=== PATIENT | male | born 1935 | race Caucasian/White ===

== ENCOUNTER 2016-07-13 06:41 | Inpatient (IN) | payer OTHER ==
[2016-06-18 14:01] VITALS: BMI 26.0
--- NOTE | 2016-06-18 14:38 | PAT Medication Instructions ---
Service Date Jun 18, 2016. Current Home Medication List Amlodipine (Norvasc), 10 MG PO QPM Aspirin (Aspirin Ec), 81 MG PO QPM Lisinopril/Hctz (Zestoretic 20MG/25MG), 1 TAB PO QAM Simvastatin (Zocor), 20 MG PO QPM Medication Instructions For Your Scheduled Surgery - Hold the following medications the morning of surgery: Lisinopril/Hctz (Zestoretic 20MG/25MG), 1 TAB PO QAM - Take the following medications as scheduled the night before surgery: Simvastatin (Zocor), 20 MG PO QPM Amlodipine (Norvasc), 10 MG PO QPM Aspirin (Aspirin Ec), 81 MG PO QPM If you have any questions please call us at [phone] or [phone] ( [facility]) or [phone]
--- NOTE | 2016-06-18 15:10 | DIAGNOSTIC IMAGING REPORT ---
CHEST 2 VIEWS ROUTINE CLINICAL HISTORY: Preoperative evaluation. COMPARISON STUDY: No previous studies for comparison. FINDINGS: Lung volumes are at the upper limits of normal. No consolidation is identified. There is no pneumothorax or pleural effusion. Cardiac size is normal. Mediastinal contours are normal. There is no evidence of pulmonary edema. IMPRESSION: No acute cardiopulmonary findings. Electronically signed by: Malick Baires M.D. 06/18/2016 3:08 PM Dictated Date/Time: 06/18/2016 3:08 PM
[2016-06-18 16:11] LABS: BASO % 0.4 %; BASO ABS # 0.03 K/uL (0-0.2); COMPLETE YES; EOS % 1.5 %; HEMATOCRIT 45.1 % (42-52); IG% 0.1 %; LYMPH % 20.7 %; LYMPH ABS # 1.65 K/uL (1.2-3.4); MEAN CELL VOLUME 87.9 fL (80-100); MEAN CORPUSCULAR HEMOGLOBIN 32.6 pg (25-34); MEAN PLATELET VOLUME 9.4 fL (7.4-10.4); MONO % 6.9 %; NEUT % 70.4 %; PLATELET COUNT 224 K/uL (130-400); RED BLOOD COUNT 5.13 M/uL (4.7-6.1); WHITE BLOOD COUNT 7.99 K/uL (4.8-10.8)
[2016-06-18 16:17] LABS: URINE APPEARANCE CLEAR (CLEAR); URINE BILIRUBIN NEG (NEG); URINE COLOR YELLOW; URINE NITRITE NEG (NEG); URINE SPECIFIC GRAVITY 1.022 (1.000-1.030); UROBILINOGEN NEG (NEG); ZZUR CULT IF INDIC CLEAN CATCH NO
[2016-06-18 16:20] LABS: MANUAL MICROSCOPIC REQUIRED? NO; REVIEW REQ? NO
[2016-06-18 16:23] LABS: PARTIAL THROMBOPLASTIN RATIO 1.1; PROTHROMBIN TIME (PATIENT) 10.7 SECONDS (9.0-12.0)
[2016-06-18 16:46] LABS: BUN/CREATININE RATIO 26.5 (10-20); CALCIUM 9.1 mg/dl (8.5-10.1); CREATININE 1.1 mg/dl (0.60-1.40); POTASSIUM 3.2 mmol/L (3.5-5.1)
--- NOTE | 2016-07-10 09:48 | HISTORY & PHYSICAL EXAMINATION ---
DATE OF ADMISSION: 07/13/2016 CHIEF COMPLAINT: Right hip pain. HISTORY OF PRESENT ILLNESS: Mr. Deluna is a 80-year-old male with a multiple year history of right hip pain. The patient rates his pain an 8/10. He has pain with his daily activities. He has limited standing and walking tolerance. Pain is worse with weightbearing. The patient has been taking Advil and injections without relief. He has failed conservative treatment and is scheduled for right hip replacement. PAST MEDICAL HISTORY: Hypertension, hypercholesterolemia, BPH. He denies heart disease, diabetes or DVT. PAST SURGICAL HISTORY: Left knee arthroscopy. SOCIAL HISTORY: The patient denies alcohol or tobacco use. He lives in a single story home. He is and retired. FAMILY HISTORY: Negative for DVT. MEDICATIONS: Lisinopril/HCTZ 20/25 mg, amlodipine 10 mg, aspirin 81 mg, simvastatin 20 mg. ALLERGIES: None. REVIEW OF SYSTEMS: See HPI. Ten other systems reviewed, all negative. PHYSICAL EXAMINATION: VITAL SIGNS: Height 5 foot 9, weight 184 pounds, BMI 27. GENERAL: This is a well-developed, well-nourished male who is alert and oriented x3. Mood and affect are appropriate. HEAD, EYES, EARS, NOSE, AND THROAT: Normocephalic, atraumatic. Mucous membranes are moist and intact. NECK: Supple without lymphadenopathy. HEART: Regular rate and rhythm without murmurs, rubs or gallops. LUNGS: Clear to auscultation without wheezes or rhonchi. ABDOMEN: Soft and nontender. Bowel sounds are equal and active. EXTREMITIES: No ecchymosis, redness or warmth. Log roll of the hip reproduces pain in the groin. He is neurovascularly intact with +5/5 strength. He walks with an antalgic gait. X-RAY EXAMINATION: AP and lateral views show joint space narrowing and osteophyte formation. He also has cystic formation in the femoral head. IMPRESSION: Degenerative joint disease, right hip. PLAN: The patient will be admitted for a right total hip arthroplasty. We will plan on aspirin for DVT prophylaxis. The patient's PCP is Dr. Linn in [place], [place]. He is having [facility] for home physical therapy.
[~2016-07-13] VITALS: Ht 177.8 cm; Wt 83.0 kg
[2016-07-13] VITALS (7 sets, daily range): BP systolic 102–175; BP diastolic 61–97; PULSE 57–80; TEMP 36.3–37; O2SAT 93–99; Ht 177.8 cm; Wt 83.0 kg
[~2016-07-13 06:41] MED LIST: ACETAMINOPHEN 500 MG TAB PO SCH; AMLO-114 PO; ASPI81TA28 PO; CEFAZOLIN 2000 MG/60 ML D5W 60 ML IV SCH; CeleBREX 200 MG CAP PO SCH; DEXAMETHASONE 4 MG TAB PO SCH; FAMOTIDINE 20 MG TAB PO SCH; GABAPENTIN 300 MG CAP PO SCH; LACTATED RINGER'S 1000ML 1,000 ML IV SCH; LACTATED RINGER'S 1000ML 500 ML IV ONE; LACTATED RINGER'S 1000ML IV SCH; LISI-788 PO; METOCLOPRAMIDE HCL 10 MG TAB PO SCH; OXYCODONE HCL 10 MG TABCR (OXYCONTIN) PO SCH; POLYMYXIN B SULFATE 100,000 UNITS in NSS 100ML IR SCH; ROPIVACAINE 5MG/ML 30 ML 150 MG, BUPIVACAINE/EPINEPHR 0.5% MPF 30 ML, KETOROLAC TROMETH... INFIL SCH; SIMV20TA2 PO; VANCOMYCIN INJ 400 MG in NSS 100ML IR SCH
[2016-07-13] MEDS ORDERED: BUPIVACAINE 0.5 % 5 MG/1 ML PF 10ML VIAL ONE (07:01)
[2016-07-13] MEDS ORDERED: POTA10CA28 PO (07:28)
[2016-07-13] MEDS ORDERED: NAPR1TAB9 PO (07:29)
[2016-07-13 07:57] LABS: BUN/CREATININE RATIO 25.3 (10-20); CALCIUM 9.6 mg/dl (8.5-10.1); CREATININE 1.2 mg/dl (0.60-1.40); POTASSIUM 3.3 mmol/L (3.5-5.1)
--- NOTE | 2016-07-13 08:27 | History & Physical Bridge Note ---
H&P Re-Evaluation Bridge Note: I have examined the patient, reviewed the History & Physical and in the interval since the performance of the History & Physical I have noted the following changes of clinical significance: No changes noted
[2016-07-13] MEDS ORDERED: LABETALOL HCL IV 5 MG/ML 20ML IV PRN (08:30)
[2016-07-13] MEDS ORDERED: EpHEDrine SULFATE INJ 50 MG/ML AMP IV PRN (08:30)
[2016-07-13] MEDS ORDERED: NALOXONE HCL 0.4 MG/1 ML VIAL/CARP IV PRN (08:30)
[2016-07-13] MEDS ORDERED: FLUMAZENIL 0.1 MG/1 ML 10 ML VIAL IV PRN (08:30)
[2016-07-13] MEDS ORDERED: PHENYLEPHRINE 100MCG/ML 5ML SYR IV PRN (08:30)
[2016-07-13] MEDS ORDERED: FENTANYL CITRATE INJ 50 MCG/1 ML 2 ML VIAL IV PRN (08:30)
[2016-07-13] MEDS ORDERED: ONDANSETRON INJ 2 MG/ML 2 ML VIAL IV PRN ×2 (08:30→11:15)
[2016-07-13] MEDS ORDERED: ATROPINE SULFATE 0.1 MG/ML 5ML SYR IV PRN (08:30)
[2016-07-13] MEDS ORDERED: MEPERIDINE HCL 25 MG/ML CARP IV PRN (08:30)
[2016-07-13] MEDS ORDERED: HYDROmorphone INJ 2 MG/ML SYR/VIAL IV PRN (08:30)
[2016-07-13] MEDS ORDERED: MIDAZOLAM HCL 1 MG/ML 2ML VIAL ONE ×2 (08:37)
[2016-07-13] MEDS ORDERED: POVIDONE-IODINE OP SOLN 30 ML BTL ONE (08:56)
[2016-07-13] MEDS ORDERED: ORTHO JOINT ANESTHETIC ONE (08:56)
[2016-07-13] MEDS ORDERED: BACITRACIN 50000 UNIT VIAL ONE (08:56)
[2016-07-13] MEDS: TRANEXAMIC ACID INJ 1,000 MG in SODIUM CHLORIDE 0.9% 100ML 100 ML IV SCH ×2 (09:07→13:15)
[2016-07-13] MEDS ORDERED: LIDOCAINE HCL 2% 2 ML VIAL (20MG/ML) ONE (10:09)
[2016-07-13] MEDS ORDERED: PROPOFOL IV EMULSION 10 MG/ML 20 ML VIAL IV ONE ×2 (10:09)
--- NOTE | 2016-07-13 11:02 | [facility] Post Operative Brief Note ---
Immediate Operative Summary Operative Date Jul 13, 2016. Pre-Operative Diagnosis Degenerative joint disease, right hip Post-Operative Diagnosis Degenerative joint disease, right hip Procedure(s) Performed Right total hip arthroplasty, direct anterior approach Surgeon Dr. Agustín Obrien Color Matcher Surgeon(s) Rochelle Avery PA-C Estimated Blood Loss 50 Findings djd Specimens A: right femoral head Complication(s) None Disposition Recovery Room / PACU
[2016-07-13] MEDS ORDERED: ZOLPIDEM TARTRATE 5 MG TAB PO PRN (11:15)
[2016-07-13] MEDS ORDERED: OXYCODONE HCL IR 5 MG TAB (IMMEDIATE RELEASE) PO PRN (11:15)
[2016-07-13] MEDS ORDERED: BISACODYL 10 MG SUPP PR PRN (11:15)
[2016-07-13] MEDS ORDERED: TRAMADOL HCL 50 MG TAB PO PRN (11:15)
[2016-07-13] MEDS ORDERED: MoRPHine SULFATE 2 MG/ML CARP IV PRN (11:15)
[2016-07-13] MEDS ORDERED: METOCLOPRAMIDE HCL INJ 5 MG/ML 2 ML VIAL IV PRN (11:15)
[2016-07-13] MEDS ORDERED: ALUMINUM/MAGNESIUM/SIMETH (MAALOX MAX) 30 ML UDC PO PRN (11:15)
[2016-07-13] MEDS ORDERED: SOD PHOSPHATE/SOD BIPHOSPHATE ENEMA 132 ML BTL PR PRN (11:15)
[2016-07-13] MEDS ORDERED: MAGNESIUM HYDROXIDE SUSP 30 ML UDC PO PRN (11:15)
[2016-07-13] MEDS ORDERED: DiphenhydrAMINE HCL 50 MG/ML VIAL IV PRN (11:15)
--- NOTE | 2016-07-13 11:41 | DIAGNOSTIC IMAGING REPORT ---
RIGHT PELVIS/UNILATERAL HIP 1 VIEW CLINICAL HISTORY: Postop study. Degenerative arthritis COMPARISON STUDY: No previous studies for comparison. FINDINGS: There are postsurgical changes of a total right hip arthroplasty. The acetabular and femoral components appear well seated. There is no dislocation. There are no acute fractures. There is air within the soft tissues consistent with recent surgery. There is an overlying surgical drain. IMPRESSION: Postsurgical changes of a total right hip arthroplasty Electronically signed by: Alex Colbert M.D. 07/13/2016 11:40 AM Dictated Date/Time: 07/13/2016 11:39 AM
--- NOTE | 2016-07-13 12:05 | DIAGNOSTIC IMAGING REPORT ---
INTRAOPERATIVE RIGHT HIP 2 VIEWS CLINICAL HISTORY: Right total hip arthroplasty COMPARISON STUDY: No previous studies for comparison. FINDINGS: 10 seconds of fluoroscopic time was utilized. 2 intraoperative fluoroscopic spot images demonstrate a total right hip arthroplasty. There is no dislocation. No fractures are visualized. IMPRESSION: Intraoperative radiographs demonstrating a total right hip arthroplasty Electronically signed by: Alex Colbert M.D. 07/13/2016 12:04 PM Dictated Date/Time: 07/13/2016 12:03 PM
--- NOTE | 2016-07-13 12:17 | Anesthesiology Progress Note ---
Anesthesia Post Op Note Date & Time Jul 13, 2016 at 12:17 Vital Signs Pain Intensity: 0 Vital Signs Past 12 Hours Date Time Temp Pulse Resp B/P Pulse Ox O2 Delivery O2 Flow Rate FiO2 07/13/16 12:10 36.0 57 14 104/51 98 Nasal Cannula 2 07/13/16 12:00 59 12 104/54 97 Nasal Cannula 2 07/13/16 11:50 59 14 95/59 98 Nasal Cannula 2 07/13/16 11:40 59 11 96/67 99 Mask 10 07/13/16 11:30 65 15 112/53 100 Mask 10 07/13/16 11:23 36.1 65 14 104/51 98 Mask 10 07/13/16 07:20 36.7 80 20 175/97 93 Room Air Notes Mental Status: alert / awake / arousable, participated in evaluation Pt Amnestic to Procedure: Yes Nausea / Vomiting: adequately controlled Pain: adequately controlled Airway Patency, RR, SpO2: stable & adequate BP & HR: stable & adequate Hydration State: stable & adequate Anesthetic Complications: no major complications apparent
[2016-07-13] MEDS: D5W AND 1/2NSS + 20MEQ KCL 1,000 ML IV SCH ×2 (13:14→22:45)
[2016-07-13] MEDS: KETOROLAC TROMETHAMINE 15 MG/ML VIAL IV. SCH ×2 (14:15→20:05)
[2016-07-13] MEDS: ACETAMINOPHEN 500 MG TAB PO SCH (16:06)
[2016-07-13] MEDS: CEFAZOLIN IV 2,000 MG in DEXTROSE 5% 50ML 50 ML IV SCH (16:06)
--- NOTE | 2016-07-13 17:08 | OPERATIVE REPORT ---
DATE OF OPERATION: 07/13/2016 PREOPERATIVE DIAGNOSIS: Degenerative arthritis, right hip. POSTOPERATIVE DIAGNOSIS: Same. PROCEDURE: Right total hip replacement. SURGEON: Agustín Obrien MD RAISE MINER: SONI Putnam ANESTHESIA: Spinal. BLOOD LOSS: 50 mL. REPLACEMENT FLUIDS: 1500 mL crystalloid. DRAINS: Hemovac x2. CULTURES: None. COMPLICATIONS: None. COMPONENTS USED: [employer] hip system: Acetabulum size 56, femur size 7 high offset, and femoral head +4, 36 mm. NOTE: SONI Putnam was present and assisted throughout due to the complicated nature of this case. She helped with preparation and set up, first assisted throughout and personally closed the fascial, subcutaneous and skin layers and applied the postoperative dressing. DESCRIPTION OF PROCEDURE: Following satisfactory spinal, the patient was placed supine on the operating room table. The left leg was placed in the well leg hawkins and the right leg in the traction device. The right leg was prepared with ChloraPrep and draped sterilely. Following a surgical time-out, an anterior approach was performed in the interval between the sartorius and tensor muscles. The circumflex femoral vessels were identified and ligated. An anterior capsulotomy was performed exposing an arthritic femoral neck and head. The femoral neck and head were trimmed and removed. The acetabular retractors were placed. Acetabular reaming and preparation was completed and under fluoroscopic guidance, a 56 shell was placed and secured with a dome screw. The local anesthetic was placed and the polyethylene liner was placed after irrigation. The femur was placed into position of external rotation, extension and adduction. The femoral canal was prepared up to the size 7, high offset neck with a +4 head using fluoroscopy showed good fit and fill of the proximal canal and confucianist of leg lengths using anatomic landmarks. The hip was dislocated. The trial component was removed. The final implant was placed and after irrigation, the hip was reduced with fluoroscopy confirming the position. The Betadine soak was performed for 5 minutes and then irrigated. The capsule was closed with #1 Vicryl interrupted. Local anesthetic and irrigation were placed. The drain was then placed. The fascia was closed with a running suture of #1 Vicryl, the subcutaneous tissues with 2-0 Vicryl and the skin was closed with a running subcuticular stitch of 3-0 V-Loc. Dermabond and a dry dressing were applied. The patient was returned to his bed in stable condition. I attest to the content of the Intraoperative Record and any orders documented therein. Any exceptio ns are noted below.
[2016-07-13] MEDS ORDERED: TRANEXAMIC ACID INJ 1,000 MG in SODIUM CHLORIDE 0.9% 100ML 100 ML IV ONE (17:30)
[2016-07-13] MEDS ORDERED: SENNA 8.6 MG TAB PO SCH (21:00)
[2016-07-13] MEDS ORDERED: SIMVASTATIN 20 MG TAB PO SCH (21:00)
[2016-07-13] MEDS ORDERED: AMLODIPINE BESYLATE 5 MG TAB PO SCH (21:00)
[2016-07-13] MEDS: ASPIRIN 81 MG ECTAB PO SCH (21:01)
[2016-07-14] MEDS: CEFAZOLIN IV 2,000 MG in DEXTROSE 5% 50ML 50 ML IV SCH (00:33)
[2016-07-14] MEDS: ACETAMINOPHEN 500 MG TAB PO SCH ×2 (00:33→07:36)
[2016-07-14] MEDS: KETOROLAC TROMETHAMINE 15 MG/ML VIAL IV. SCH ×2 (01:56→07:35)
[2016-07-14 04:06] VITALS: BP 167/75; PULSE 84; TEMP 36.7; O2SAT 95
[2016-07-14 04:57] VITALS: BP 152/83; PULSE 80
[2016-07-14 06:52] LABS: BASO % 0.1 %; BASO ABS # 0.01 K/uL (0-0.2); COMPLETE YES; HEMATOCRIT 39.5 % (42-52); IG% 0.2 %; LYMPH % 8.5 %; LYMPH ABS # 1.41 K/uL (1.2-3.4); MEAN CELL VOLUME 86.4 fL (80-100); MEAN CORPUSCULAR HEMOGLOBIN 31.3 pg (25-34); MEAN CORPUSCULAR HGB CONC 36.2 g/dl (32-36); MEAN PLATELET VOLUME 9.1 fL (7.4-10.4); MONO % 7.3 %; NEUT % 83.9 %; PLATELET COUNT 186 K/uL (130-400); RED BLOOD COUNT 4.57 M/uL (4.7-6.1); WHITE BLOOD COUNT 16.68 K/uL (4.8-10.8)
[2016-07-14 06:55] VITALS: BP 133/73; PULSE 95; TEMP 36.3; O2SAT 96
[2016-07-14 07:21] LABS: BUN/CREATININE RATIO 24.1 (10-20); CALCIUM 8.5 mg/dl (8.5-10.1); CREATININE 1.2 mg/dl (0.60-1.40); POTASSIUM 3.6 mmol/L (3.5-5.1)
[2016-07-14] MEDS: ASPIRIN 81 MG ECTAB PO SCH (07:41)
[2016-07-14] MEDS: D5W AND 1/2NSS + 20MEQ KCL 1,000 ML IV SCH (07:56)
--- NOTE | 2016-07-14 08:10 | Anesthesiology Progress Note ---
Anesthesia Post Op Note Date & Time Jul 14, 2016 at 08:09 Vital Signs Pain Intensity: 0.0 Vital Signs Past 12 Hours Date Time Temp Pulse Resp B/P Pulse Ox O2 Delivery O2 Flow Rate FiO2 07/14/16 07:15 Room Air 07/14/16 06:55 36.3 95 20 133/73 96 Room Air 07/14/16 04:57 80 152/83 07/14/16 04:06 36.7 84 18 167/75 95 Nasal Cannula 2.0 07/14/16 00:20 Nasal Cannula 2.0 07/13/16 22:50 36.8 66 16 131/68 96 Nasal Cannula 2.0 Notes Mental Status: alert / awake / arousable, participated in evaluation Pt Amnestic to Procedure: Yes Nausea / Vomiting: adequately controlled Pain: adequately controlled Airway Patency, RR, SpO2: stable & adequate BP & HR: stable & adequate Hydration State: stable & adequate Neuraxial Anesthesia: sensory block resolved Anesthetic Complications: no major complications apparent
--- NOTE | 2016-07-14 08:16 | DISCHARGE SUMMARY ---
DISCHARGE DIAGNOSIS: Degenerative joint disease, right hip. SECONDARY DIAGNOSIS: None. CONSULTS: None. COMPLICATIONS: None. PROCEDURE: The patient underwent a right total hip arthroplasty with Dr. Obrien on 07/13/2016. BRIEF HISTORY: Please see previously dictated history and physical. HOSPITAL SUMMARY: The patient was admitted on the above day for the above procedure. Procedure went without complication. Postop day 1 the patient was feeling well without complaints. He denied chest pain or shortness of breath. Vital signs were stable. He was afebrile. Dressing was clean, dry and intact. He was neurovascularly intact. Calves were soft and nontender. Hemoglobin was 14.3. Hemovac drained 10 and 100 mL. The patient began physical therapy per protocol. He was discharged to home later that day in stable condition. For further review please see the chart. Lab, x-ray data and discharge instructions as per chart.
--- NOTE | 2016-07-14 08:29 | Discharge Instructions ---
Discharge Instructions Admission Reason for Admission: Right Hip Degenerative Arthritis Discharge Discharge Diagnosis / Problem: sp right DENISE, direct anterior Discharge Goals Goal(s): Decrease discomfort, Improve function, Increase independence Activity Recommendations Activity Limitations: per Instructions/Follow-up section . Instructions / Follow-Up Instructions / Follow-Up ACTIVITY RECOMMENDATIONS: SELF CARE INSTRUCTIONS AFTER TOTAL HIP REPLACEMENT : Direct Anterior Approach Until the incision and soft tissues around your hip have healed, there is a possibility that the hip prosthesis could dislocate. A. Hip flexion ( Up & Down out of chair or steps ) may be difficult. This is normal. B. Numbness in front of the thigh is also normal for a few weeks. C. Use hand rails when walking on stairs. D. Wear low heeled shoes with non-slip soles. E. Be sure that your floors are free of things that could trip you - throw rugs , electrical cords, small objects. Avoid wet and waxed floors, especially with crutches and canes. F. Try to walk several times a day with rest periods between. G. Continue with all the exercises taught to you in the hospital. Again, make walking a part of your daily routine. SPECIAL CARE INSTRUCTIONS: VERY IMPORTANT TO READ AND REVIEW A. You may still be at risk for phlebitis and blood clots. 1. Wear surgical stockings (SAVANNAH hose) for 2 weeks after surgery to improve circulation and reduce swelling. 2. Take Aspirin 81mg twice daily for 4 weeks or as directed by your doctor. This is your blood thinner. 3. High risk patients may be prescribed a stronger blood thinner if necessary. 4. If you are on Coumadin normally, your family doctor/completion supervisor should monitor your blood work. Expect a phone call the day of or the day after bloodwork is drawn to adjust your dosage. B. You must take antibiotics before having dental work, bladder, bowel and other surgery. Your doctor will provide you with a permanent card to carry describing precautions. C. Call [facility] if you have a fever, redness or swelling around the incision, cloudy drainage from incision, or sudden increase in pain in your hip, not relieved by your regular pain medication. D. Please call the office at if you have any concerns or questions about your operation or recovery. * YOU MAY SHOWER, NO TUB BATHS UNTIL CLEARED BY YOUR DOCTOR. - Keep an extra close eye on the top portion of your incision. Be sure to keep clean & dry. * WEAR SAVANNAH HOSE 20 HOURS PER DAY FOR 2 WEEKS. * YOU MAY PROGRESS FROM A WALKER, TO A CANE, TO INDEPENDENT AT YOUR OWN PACE. * MOST PATIENTS WILL HAVE HOME NURSING FOR THERAPY. IF YOU DECIDE TO DO OUTPATIENT PHYSICAL THERAPY, PLEASE SCHEDULE THIS 3 TIMES PER WEEK. * DERMABOND Prineo- This is a mesh tape dressing that is covered with glue. It should remain in place until the incision is properly healed, usually 10-14 days. This dressing is designed to naturally slough off. You may trim the excess mesh tape as it peels off. Incision may be briefly wet in a shower. Dry immediately by blotting with a clean, dry towel. Do not bath or swim until instructed by your doctor. Do not scratch, rub, or pick at the dressing. Do not apply any topical ointments or lotions until dressing is completely removed and/or instructed by your doctor. There may be a small piece of suture material at one end of your incision. Do not pull or trim this. If it is bothersome or catching on clothing, you may cover it with a band-aid. FOLLOW UP VISIT: If appointment is not already scheduled: Please call [facility] to make a follow-up appointment for 2 weeks after your surgery at . Current Hospital Diet Patient's current hospital diet: Regular Diet Discharge Diet Recommended Diet: Regular Diet Procedures Procedures Performed: Right total hip arthroplasty, direct anterior approach Pending Studies Studies pending at discharge: no Medical Emergencies . Who to Call and When: Medical Emergencies: If at any time you feel your situation is an emergency, please call 911 immediately. . Non-Emergent Contact Non-Emergency issues call your: Primary Care Provider . "Provider Documentation" section prepared by Rochelle Avery. VTE Core Measure Inpt VTE Proph given/why not?: Other Anticoagulation, T.E.DJoselin Gee, [facility]'s [place] Drug Monitoring Program Search Results: patient reviewed within database, no issues identified
[2016-07-14] MEDS ORDERED: ONDA8TAB6 PO (08:32)
[2016-07-14] MEDS ORDERED: ASPI81TA28 PO (08:32)
[2016-07-14] MEDS ORDERED: SNK PO (08:32)
[2016-07-14] MEDS ORDERED: CLB200 PO (08:32)
[2016-07-14] MEDS ORDERED: ACET-1138 PO (08:32)
[2016-07-14] MEDS ORDERED: RXC5 PO (08:32)
[2016-07-14] MEDS ORDERED: PANTOprazole SOD 40 MG TAB PO SCH (09:00)
[2016-07-14] MEDS ORDERED: MULTIVITAMIN TAB PO SCH (09:00)
[2016-07-14] MEDS ORDERED: LISINOPRIL/HCTZ 20/25MG TAB PO SCH (09:00)
[2016-07-14 11:23] VITALS: BP 153/76; PULSE 67; TEMP 36.5; O2SAT 96
[2016-07-14 12:09] VITALS: BP 153/76; PULSE 67; TEMP 36.5; O2SAT 96
[2016-07-14] MEDS ORDERED: POTASSIUM CHLORIDE 10 MEQ TABCR PO SCH (12:30)
[2016-07-15] MEDS ORDERED: CeleBREX 200 MG CAP PO SCH (21:00)
== END 2016-07-14 13:00 | disposition home health service (06) | DRG 470 ==
LOC: ENRESERVTM → ENRESERVDT → C.ACU 06:41 → C.3E 08:00
PROVIDERS: ADMIT Orthopaedic Surgery; ATTEND Orthopaedic Surgery
PROC: 0SR90JZ Replacement of Right Hip Joint with Synthetic Substitute, Open Approach (ICD-10-PCS; principal; 2016-07-13 09:30)
DX: M16.11 Unilateral primary osteoarthritis, right hip (principal); I10 Essential (primary) hypertension; E78.00 Pure hypercholesterolemia, unspecified; N40.0 Benign prostatic hyperplasia without lower urinary tract symptoms